=== PATIENT | male | born 1975 | race Caucasian/White ===

== ENCOUNTER 2021-07-11 11:54 | Emergency (ER) | payer OTHER ==
[~2021-07-11] VITALS: Ht 177.8 cm; Wt 86.2 kg
--- NOTE | 2021-07-11 12:00 | NUR ---
called to triage,no answer
--- NOTE | 2021-07-11 13:30 | NUR ---
pt sleeping soundly resp even unlabored
--- NOTE | 2021-07-11 14:35 | NUR ---
pt withdrals from [facility]. small amt emesis vss
[2021-07-11 14:52] LABS: BILIRUBIN,URINE NEGATIVE (NEGATIVE); COLOR,URINE YELLOW (YELLOW); LEUKOCYTE ESTERASE ,URINE NEGATIVE (NEGATIVE); NITRITE, URINE NEGATIVE (NEGATIVE); PH,URINE 6.5 (5.0-8.0); PROTEIN,URINE 100 mg/dl (NEGATIVE); UGLUCOSE NEGATIVE (NEGATIVE); UROBILINOGEN,URINE 0.2 EU/dL (0.2)
[2021-07-11 14:59] LABS: BACTERIA,URINE 1+ /HPF (None Seen); SQUAMOUS EPITHELIAL CELL,UR Few /HPF (None Seen)
[2021-07-11 15:27] LABS: BASOPHILS % (AUTO) 0.2 % (0.0-2.0); HEMATOCRIT 37 % (39-51); HEMOGLOBIN 12.4 g/dL (13.5-17.5); LYMPHOCYTES # (AUTO) 0.9 K/uL (0.8-4.8); LYMPHOCYTES % (AUTO) 8.2 % (20.0-44.0); MEAN CORPUSCULAR HGB CONC 34 g/dl (31.0-36.0); MEAN CORPUSCULAR VOLUME 90 fL (80-96); MONOCYTES # (AUTO) 0.6 K/uL (0.1-1.30); MONOCYTES % (AUTO) 5.9 % (2.0-12.0); NEUTROPHILS # (AUTO) 9.1 K/uL (1.8-8.9); NEUTROPHILS % (AUTO) 85.7 % (43.0-81.0); PLATELET COUNT (AUTO) 176 K/uL (150-450); RED BLOOD CELL COUNT(AUTO) 4.07 MIL/uL (4.5-6.0); WHITE BLOOD COUNT (AUTO) 10.6 K/uL (4.3-11.0)
[2021-07-11 15:40] LABS: CALCIUM, SERUM 8.5 mg/dL (8.5-10.1); CARBON DIOXIDE 27 mmol/L (21-32); CHLORIDE 98 mmol/L (98-107); CREATININE 0.9 mg/dL (0.6-1.3); GLUCOSE 109 mg/dL (74-106); POTASSIUM 3.6 mmol/L (3.5-5.1); SODIUM SERUM 138 mmol/L (136-145); UREA NITROGEN, BLOOD 15 mg/dL (7-18)
[2021-07-11 15:44] LABS: ALANINE AMINOTRANSFERASE 104 U/L (12-78); ALBUMIN 4.2 g/dL (3.4-5.0); ALCOHOL, BLOOD < 3 mg/dL (0-0); ALKALINE PHOSPHATASE 92 U/L (46-116); ASPARTATE AMINOTRANSFERASE 99 U/L (15-37); BILIRUBIN,DIRECT 0.3 mg/dL (0.0-0.2); BILIRUBIN,TOTAL 1.7 mg/dL (0.2-1.0); TOTAL PROTEIN, SERUM 7.3 g/dL (6.4-8.2)
[2021-07-11 15:46] LABS: ACETAMINOPHEN < 0 ug/ml (10-30)
--- NOTE | 2021-07-11 17:28 | NUR ---
pt amb to br voided back to bed watching tv
--- NOTE | 2021-07-11 19:11 | NUR ---
change off shift pt quiet watching tv
--- NOTE | 2021-07-11 22:14 | NUR ---
FAXED F[facility]ET AND [facility]INIC[facility] TO COUNT INCLUDES THE [facility]N INTAKE
--- NOTE | 2021-07-12 01:53 | NUR ---
SPOKE TO [facility] INTAKE. WILL NEED TO WAIT UNTIL MORNING DISCHARGES FOR BED AVAIL.
--- NOTE | 2021-07-12 02:17 | NUR ---
PT ACCEPTED AT [facility]. DR. SWEET REPORT: INTAKE.
--- NOTE | 2021-07-12 02:23 | NUR ---
CALLED CALL THE CAR FOR BLS TRANSPORT. AWAITING ETA. #[phone]
--- NOTE | 2021-07-12 02:25 | NUR ---
REPORT GIVEN TO OMARI
--- NOTE | 2021-07-12 02:30 | NUR ---
S TRANSPORT [facility] 0300 ETA [employer] #[id number]
--- NOTE | 2021-07-12 03:25 | NUR ---
REPORT GIVEN TO EMS AT BEDSIDE. PATIENT IN NO ACUTE DISTRESS.
[2021-07-12 03:51] VITALS: BP 126/71
== END 2021-07-12 03:36 ==
LOC: ER 12:02
DX: R45.851 Suicidal ideations (principal); F10.20 Alcohol dependence, uncomplicated; Y90.0 Blood alcohol level of less than 20 mg/100 ml; Z59.00 Homelessness unspecified; R31.9 Hematuria, unspecified; Z20.822 Contact with and (suspected) exposure to COVID-19
CPT/HCPCS: 36415; 80048; 80076; 80143; 80307; 80320; 81001; 85025; 87426; 99285; C9803; G0480